=== PATIENT | female | born 1970 | race Caucasian/White ===

== ENCOUNTER → 2016-03-02 | Outpatient (REF) | payer OTHER ==
[2016-03-02 18:39] LABS: ALBUMIN 4.2 GM/DL (3.2-5.2); ALBUMIN/GLOBULIN RATIO 1.31 (1.00-1.93); ALKALINE PHOSPHATASE 126 U/L (45-117); ALT/SGPT 16 U/L (12-78); ANION GAP 10 MEQ/L (8-16); AST/SGOT 15 U/L (15-37); BILIRUBIN,TOTAL 0.4 MG/DL (0.2-1.0); BLOOD UREA NITROGEN 13 MG/DL (7-18); CALCIUM LEVEL 8.7 MG/DL (8.5-10.1); CARBON DIOXIDE LEVEL 27 MEQ/L (21-32); CHLORIDE LEVEL 100 MEQ/L (98-107); CHOLESTEROL LEVEL 201 MG/DL (<200); CREATININE FOR GFR 0.94 MG/DL (0.55-1.02); GLOMERULAR FILTRATION RATE > 60.0 (>58); GLUCOSE, FASTING 265 MG/DL (70-105); SODIUM LEVEL 137 MEQ/L (136-145); TOTAL PROTEIN 7.4 GM/DL (6.4-8.2); TRIGLYCERIDES LEVEL 252 MG/DL (<150)
== END ==
LOC: M SFHCCLAY 10:48
PROVIDERS: ATTEND Family Medicine
DX: E10.9 Type 1 diabetes mellitus without complications (principal); E07.9 Disorder of thyroid, unspecified; E78.2 Mixed hyperlipidemia

== ENCOUNTER → 2016-08-24 | Outpatient (REF) | payer OTHER ==
[2016-08-24 12:24] LABS: ALBUMIN 3.5 GM/DL (3.2-5.2); ALBUMIN/GLOBULIN RATIO 1.13 (1.00-1.93); ALKALINE PHOSPHATASE 105 U/L (45-117); ALT/SGPT 21 U/L (12-78); ANION GAP 6 MEQ/L (8-16); AST/SGOT 20 U/L (15-37); BILIRUBIN,TOTAL 0.4 MG/DL (0.2-1.0); BLOOD UREA NITROGEN 7 MG/DL (7-18); CALCIUM LEVEL 8.5 MG/DL (8.5-10.1); CARBON DIOXIDE LEVEL 29 MEQ/L (21-32); CHLORIDE LEVEL 103 MEQ/L (98-107); CHOLESTEROL LEVEL 121 MG/DL (<200); CREATININE FOR GFR 0.94 MG/DL (0.55-1.02); FREE T4 0.74 NG/DL (0.76-1.46); GLOMERULAR FILTRATION RATE > 60.0 (>58); GLUCOSE, FASTING 270 MG/DL (70-105); POTASSIUM SERUM 4.1 MEQ/L (3.5-5.1); SODIUM LEVEL 138 MEQ/L (136-145); TOTAL PROTEIN 6.6 GM/DL (6.4-8.2); TRIGLYCERIDES LEVEL 119 MG/DL (<150)
== END ==
LOC: M SFHCCLAY 08:08
PROVIDERS: ATTEND Family Medicine
DX: E10.9 Type 1 diabetes mellitus without complications (principal); E07.9 Disorder of thyroid, unspecified; E78.2 Mixed hyperlipidemia

== ENCOUNTER → 2017-03-01 | Outpatient (REF) | payer OTHER ==
[2017-03-01 12:29] LABS: ALBUMIN/GLOBULIN RATIO 1.25 (1.00-1.93); ALKALINE PHOSPHATASE 106 U/L (45-117); ALT/SGPT 21 U/L (12-78); ANION GAP 6 MEQ/L (8-16); AST/SGOT 22 U/L (7-37); BILIRUBIN,TOTAL 0.5 MG/DL (0.2-1.0); BLOOD UREA NITROGEN 14 MG/DL (7-18); CARBON DIOXIDE LEVEL 29 MEQ/L (21-32); CHLORIDE LEVEL 102 MEQ/L (98-107); CHOLESTEROL LEVEL 148 MG/DL (<200); CHOLESTEROL RISK RATIO 2.466 (<5); CREATININE FOR GFR 0.84 MG/DL (0.55-1.02); CREATININE, URINE 48.2 MG/DL; FREE T4 0.79 NG/DL (0.76-1.46); GLOMERULAR FILTRATION RATE > 60.0 (>58); GLUCOSE, FASTING 253 MG/DL (70-105); HDL CHOLESTEROL 60 MG/DL (>40); LDL CHOLESTEROL 64.2 MG/DL (<100); MALB URINE SIEMENS 75.5 MG/L; MAU/CREAT RATIO 156.6 MCG/MG (0.0-30.0); NON-HDL-C 88 MG/DL; SODIUM LEVEL 137 MEQ/L (136-145); TOTAL PROTEIN 7.2 GM/DL (6.4-8.2); TRIGLYCERIDES LEVEL 119 MG/DL (<150)
[2017-03-01 13:28] LABS: ESTIMATED AVERAGE GLUCOSE 186 MG/DL (60-110); HEMOGLOBIN A1c 8.1 %
== END ==
LOC: M SFHCCLAY 09:26
DX: E10.9 Type 1 diabetes mellitus without complications (principal); E07.9 Disorder of thyroid, unspecified; E78.2 Mixed hyperlipidemia

== ENCOUNTER → 2017-04-26 | Outpatient (REF) | payer OTHER ==
[2017-04-26 12:26] LABS: ALBUMIN 3.7 GM/DL (3.2-5.2); ALBUMIN/GLOBULIN RATIO 1.19 (1.00-1.93); ALKALINE PHOSPHATASE 90 U/L (45-117); ALT/SGPT 19 U/L (12-78); ANION GAP 6 MEQ/L (8-16); AST/SGOT 20 U/L (7-37); BILIRUBIN,TOTAL 0.3 MG/DL (0.2-1.0); BLOOD UREA NITROGEN 15 MG/DL (7-18); CALCIUM LEVEL 8.7 MG/DL (8.5-10.1); CARBON DIOXIDE LEVEL 30 MEQ/L (21-32); CHLORIDE LEVEL 104 MEQ/L (98-107); CHOLESTEROL LEVEL 139 MG/DL (<200); CHOLESTEROL RISK RATIO 2.574 (<5); CREATININE FOR GFR 0.95 MG/DL (0.55-1.30); FREE T4 0.73 NG/DL (0.76-1.46); GLOMERULAR FILTRATION RATE > 60.0 (>58); GLUCOSE, FASTING 100 MG/DL (70-100); HDL CHOLESTEROL 54 MG/DL (>40); LDL CHOLESTEROL 53.4 MG/DL (<100); NON-HDL-C 85 MG/DL; POTASSIUM SERUM 3.9 MEQ/L (3.5-5.1); SODIUM LEVEL 140 MEQ/L (136-145); TOTAL PROTEIN 6.8 GM/DL (6.4-8.2); TRIGLYCERIDES LEVEL 158 MG/DL (<150)
[2017-04-26 13:13] LABS: ESTIMATED AVERAGE GLUCOSE 186 MG/DL (60-110); HEMOGLOBIN A1c 8.1 %
[2017-04-26 13:15] LABS: CREATININE, URINE 21.3 MG/DL; MALB URINE SIEMENS 26.6 MG/L; MAU/CREAT RATIO 124.8 MCG/MG (0.0-30.0)
== END ==
LOC: M SFHCCLAY 08:27
DX: E07.9 Disorder of thyroid, unspecified (principal); E10.9 Type 1 diabetes mellitus without complications; E78.2 Mixed hyperlipidemia
CPT/HCPCS: 84443

== ENCOUNTER → 2017-12-06 | Outpatient (REF) | payer OTHER ==
[2017-12-06 19:47] LABS: ALBUMIN 3.2 GM/DL (3.2-5.2); ALBUMIN/GLOBULIN RATIO 0.86 (1.00-1.93); ALKALINE PHOSPHATASE 117 U/L (45-117); ALT/SGPT 21 U/L (12-78); ANION GAP 4 MEQ/L (8-16); AST/SGOT 21 U/L (7-37); BILIRUBIN,TOTAL 0.3 MG/DL (0.2-1.0); BLOOD UREA NITROGEN 17 MG/DL (7-18); CARBON DIOXIDE LEVEL 31 MEQ/L (21-32); CHLORIDE LEVEL 105 MEQ/L (98-107); CREATININE FOR GFR 0.82 MG/DL (0.55-1.30); GLOMERULAR FILTRATION RATE > 60.0 (>58); GLUCOSE, FASTING 48 MG/DL (70-100); POTASSIUM SERUM 4.4 MEQ/L (3.5-5.1); SODIUM LEVEL 140 MEQ/L (136-145); TOTAL PROTEIN 6.9 GM/DL (6.4-8.2)
[2017-12-06 23:22] LABS: CREATININE, URINE 93.6 MG/DL; MALB URINE SIEMENS 28.7 MG/L
[2017-12-06 23:32] LABS: MAU/CREAT RATIO 30.7 MCG/MG (0.0-30.0)
[2017-12-06 23:37] LABS: ESTIMATED AVERAGE GLUCOSE 212 MG/DL (60-110)
== END ==
LOC: M SFHCCLAY 11:32
DX: E10.9 Type 1 diabetes mellitus without complications (principal)

== ENCOUNTER → 2019-12-25 | Outpatient (REF) | payer OTHER ==
[2019-12-25 12:02] LABS: HEMOGLOBIN A1c 8.2 %
[2019-12-25 12:18] LABS: CREATININE, URINE 45.5 MG/DL; MAU/CREAT RATIO 254.9 MCG/MG (0.0-30.0)
[2019-12-25 13:28] LABS: BLOOD UREA NITROGEN 23 MG/DL (7-18); CALCIUM LEVEL 9.5 MG/DL (8.5-10.1); CARBON DIOXIDE LEVEL 31 MEQ/L (21-32); CHLORIDE LEVEL 102 MEQ/L (98-107); CHOLESTEROL LEVEL 172 MG/DL (<200); CHOLESTEROL RISK RATIO 2.866 (<5); CREATININE FOR GFR 0.99 MG/DL (0.55-1.30); FREE T4 0.96 NG/DL (0.76-1.46); GLOMERULAR FILTRATION RATE > 60.0 (>58); GLUCOSE, FASTING 63 MG/DL (70-100); HDL CHOLESTEROL 60 MG/DL (>40); LDL CHOLESTEROL 90 MG/DL (<100); NON-HDL-C 112 MG/DL; POTASSIUM SERUM 4.3 MEQ/L (3.5-5.1); SODIUM LEVEL 138 MEQ/L (136-145); TRIGLYCERIDES LEVEL 111 MG/DL (<150)
== END ==
LOC: M LABDRAWC 11:08
PROVIDERS: ATTEND Family Medicine
DX: I11.9 Hypertensive heart disease without heart failure (principal)